=== PATIENT | male | born 1960 | race Caucasian/White ===

== ENCOUNTER → 2018-08-05 | Outpatient (CLI) | payer OTHER ==
--- NOTE | 2018-08-05 15:34 | PCVCIMAG ---
APPROVED REPORT Study performed: 08/05/2018 14:02:17 EXAM: Comprehensive 2D, Doppler, and color-flow Echocardiogram Patient Location: Echo lab Status: routine BSA: 2.38 HR: 55 bpmBP: 112/78 mmHg Rhythm: Bradycardia Other Information Study Quality: Adequate Technically limited study due to body habitus. Risk Factors: Cardiac Risk Factors: DM Indications Dilated Ascending Aorta 2D Dimensions IVSd: 11.28 (7-11mm)LVOT Diam: 22.00 (18-24mm) LVDd: 46.34 mm PWd: 10.97 (7-11mm)Ascending Ao: 47.37 (22-36mm) LVDs: 31.84 (25-40mm) Left Atrium: 44.06 (27-40mm) Aortic Root: 36.01 mm LV Single Plane 4CH: 53.66 % LV Single Plane 2CH: 58.41 % Biplane EF: 55.0 % Volumes Left Atrial Volume (Systole) Single Plane 4CH: 52.49 mLSingle Plane 2CH: 57.28 mL LA ESV Index: 24.00 mL/m2 Aortic Valve AoV Peak [place].: 2.19 m/s AO Peak Gr.: 19.20 mmHgLVOT Max P.47 mmHg AO Mean Gr.: 10.54 mmHgLVOT Mean P.61 mmHg AO V2 Mean: 1.54 m/sLVOT Max V: 1.11 m/s AO V2 VTI: 43.04 cmLVOT Mean V: 0.75 m/s RADHA (VTI): 2.58 [id number] V1 VTI: 29.87 cm RADHA Vmax: 1.89 cm2 SV (LVOT): 111.25 mL Mitral Valve E/A Ratio: 1.6 MV Decel. Time: 264.78 ms MV E Max [place].: 1.09 m/s MV A [place].: 0.69 m/s IVRT: 69.20 ms Pulmonary Valve PV Peak [place].: 1.10 m/sPV Peak Gr.: 4.84 mmHg Pulmonary Vein P Vein S: 0.68 m/sP Vein A: 0.29 m/s P Vein D: 0.53 m/sP Vein A Dur.: 76.1 msec P Vein S/D Ratio: 1.28 Tricuspid Valve RAP Estimate: 7.00 mmHg Left Ventricle The left ventricle is normal size. There is normal LV segmental wall motion. Borderline concentric left ventricular hypertrophy. Left ventricular systolic function is normal. The left ventricular ejection fraction is within the normal range. LVEF is 55-60%. The left ventricular diastolic function is normal. Right Ventricle The right ventricle is normal size. The right ventricular systolic function is normal. Atria The left atrium size is normal. The right atrium size is normal. Aortic Valve The aortic valve is not well visualized. Trace aortic regurgitation. There is some increased flow across the aortic valve. The peak aortic valve velocity is 2.3 m/s with a maximum pressure gradient of 21 mmHg and a mean pressure gradient of 12 mmHg. The calculated aortic valve area is 1.8 cm2. Mitral Valve The mitral valve is normal in structure. There is no mitral valve regurgitation noted. No evidence of mitral valve stenosis. Tricuspid Valve The tricuspid valve is normal in structure. There is no tricuspid valve regurgitation noted. Pulmonic Valve The pulmonary valve is normal in structure. There is no pulmonic valvular regurgitation. Great Vessels The aortic root is normal in size. The ascending aorta is dilated measuring 4.8 cm. IVC is normal in size and collapses >50% with inspiration. Pericardium There is no pericardial effusion. <Conclusion> The left ventricle is normal size. Borderline concentric left ventricular hypertrophy. LVEF is 55-60%. The right ventricle is normal size. The left atrium size is normal. There is some increased flow across the aortic valve. The peak aortic valve velocity is 2.3 m/s with a maximum pressure gradient of 21 mmHg and a mean pressure gradient of 12 mmHg. The calculated aortic valve area is 1.8 cm2. There is no mitral valve regurgitation noted. There is no mitral valve regurgitation noted. The aortic root is normal in size. The ascending aorta is dilated measuring 4.8 cm. There is no pericardial effusion.
== END | disposition home or self-care (01) ==
LOC: PCVCIMAG 13:50
PROVIDERS: ATTEND Internal Medicine Cardiovascular Disease
DX: I77.810 Thoracic aortic ectasia (principal); E11.9 Type 2 diabetes mellitus without complications
CPT/HCPCS: 93306